=== PATIENT | female | born 1995 | race Caucasian/White ===

== ENCOUNTER → 2016-07-08 | Outpatient (CLI) | payer MEDICAID ==
[2016-07-08 13:05] VITALS: BP 103/67
== END ==
LOC: MHUC 10:34
PROVIDERS: ATTEND Physician Assistant
DX: B34.2 Coronavirus infection, unspecified (principal); B34.8 Other viral infections of unspecified site
CPT/HCPCS: 99213

== ENCOUNTER → 2016-07-08 | Outpatient (CLI) | payer MEDICAID | LOC: LAB 10:57 | PROVIDERS: ATTEND Physician Assistant | DX: R05 Cough (principal) | CPT/HCPCS: 87486; 87581; 87633; 87798 ==

== ENCOUNTER → 2016-08-01 | Outpatient (CLI) | payer MEDICAID ==
[2016-08-01 15:00] VITALS: BP 110/75
== END ==
LOC: MHUC 14:08
PROVIDERS: ATTEND Physician Assistant
DX: J01.10 Acute frontal sinusitis, unspecified (principal)
CPT/HCPCS: 99213

== ENCOUNTER 2016-08-27 11:10 | Emergency (ER) | payer MEDICAID ==
[~2016-08-27] VITALS: Ht 165.1 cm; Wt 53.2 kg
[2016-08-27 12:06] LABS: BILIRUBIN,URINE Negative (Negative); CLARITY,URINE Cloudy; GLUCOSE, URINE (UA) Negative (Negative); LEUKOCYTE ESTERASE ,URINE Trace (Negative); PH,URINE 6.5 (5.0 - 8.0); UROBILINOGEN,URINE 0.2 mg/dL (0.2-1.0)
[2016-08-27 12:11] LABS: COLOR,URINE Dark Yellow
[2016-08-27 12:22] LABS: URINE CENTRIFUGED VOLUME 12 mL
[2016-08-27 12:23] LABS: RBC,URINE None Seen /HPF
[2016-08-27 12:29] VITALS: BP 112/76
== END 2016-08-27 12:31 | disposition home or self-care (01) ==
LOC: ED 11:12
DX: O23.41 Unspecified infection of urinary tract in pregnancy, first trimester (principal); Z3A.01 Less than 8 weeks gestation of pregnancy
CPT/HCPCS: 36415; 81003; 81015; 84702; 87077; 87088; 87186; 87210; 87491; 99283

== ENCOUNTER 2016-09-23 14:21 | Emergency (ER) | payer MEDICAID ==
[~2016-09-23] VITALS: Ht 165.1 cm; Wt 53.2 kg
[~2016-09-23 14:21] MED LIST: AMOX500C5 PO; CEFD300C PO; CEPH-507 PO; CEPH500C PO; CODE-54 PO; MEDR150V; METH4TAB27 PO; NAPR250T34 PO; NAPR550T PO; NF-MEDROXA; No home medications; ONDAN4ODT PO; OXYC1TAB87 PO; PNV91TAB3 PO; PRED20TA PO; SULF-221 PO; TBR.3OP51 OS
[2016-09-23] MEDS ORDERED: PROG100I VG (14:39)
[2016-09-23 15:35] LABS: BILIRUBIN,URINE Negative (Negative); CLARITY,URINE Cloudy; COLOR,URINE Yellow; GLUCOSE, URINE (UA) Negative (Negative); LEUKOCYTE ESTERASE ,URINE 1+ (Negative); UROBILINOGEN,URINE 0.2 mg/dL (0.2-1.0)
[2016-09-23 15:36] LABS: URINE CENTRIFUGED VOLUME 12 mL
[2016-09-23 16:10] LABS: BILIRUBIN,URINE Negative (Negative); GLUCOSE, URINE (UA) Negative (Negative); LEUKOCYTE ESTERASE ,URINE Trace (Negative); UROBILINOGEN,URINE 0.2 mg/dL (0.2-1.0)
[2016-09-23 16:16] LABS: CLARITY,URINE Slightly Cloudy; COLOR,URINE Yellow
[2016-09-23 16:20] LABS: RBC,URINE None Seen /HPF; URINE CENTRIFUGED VOLUME 12 mL
[2016-09-23] MEDS ORDERED: CEPH-331 PO (16:30)
[2016-09-23 16:37] VITALS: BP 82/65
== END 2016-09-23 16:39 | disposition home or self-care (01) ==
LOC: EDUNIT# 14:21 → ED 14:23
DX: O23.11 Infections of bladder in pregnancy, first trimester (principal); Z3A.09 9 weeks gestation of pregnancy
CPT/HCPCS: 81003; 81015; 87077; 87088; 87186; 99282; 99283

== ENCOUNTER 2016-10-15 08:11 | Emergency (ER) | payer MEDICAID ==
[~2016-10-15] VITALS: Ht 165.1 cm; Wt 52.3 kg
[~2016-10-15 08:11] MED LIST changes: +CEPH-331 PO; +PROG100I VG
[2016-10-15 09:13] LABS: BASOPHILS % (AUTO) 1 % (0-2); EOSINOPHILS # (AUTO) 0.1 10^3uL; EOSINOPHILS % (AUTO) 1 % (0-4); LYMPHOCYTES # (AUTO) 1.4 X10^3; MEAN CORPUSCULAR HEMOGLOBIN 27.4 PG (26.0-34.0); MEAN CORPUSCULAR HGB CONC 33.1 g/dL (31.0-37.0); MEAN CORPUSCULAR VOLUME 83 FL (80-100); MEAN PLATELET VOLUME 10.7 FL (6.0-9.5); MONOCYTES # (AUTO) 0.6 X10^3; MONOCYTES % (AUTO) 9 % (3-11); NEUTROPHILS # (AUTO) 4.3 X10^3; NEUTROPHILS % (AUTO) 67 % (51-67); PLATELET COUNT 233 10^3uL (150-450); WHITE BLOOD COUNT 6.44 10^3uL (4.0-11.0)
[2016-10-15 09:19] LABS: BILIRUBIN,URINE Negative (Negative); COLOR,URINE Yellow; GLUCOSE, URINE (UA) Negative (Negative); LEUKOCYTE ESTERASE ,URINE Negative (Negative); PH,URINE 7.5 (5.0 - 8.0); UROBILINOGEN,URINE 0.2 mg/dL (0.2-1.0)
[2016-10-15 09:27] LABS: ALBUMIN 3.4 g/dL (3.4-5.0); ALKALINE PHOSPHATASE 57 U/L (38-126); ANION GAP 11.4 MEQ/L (3-15); BUN/CREATININE RATIO 11 (10-20); CALCULATED IONIZED CALCIUM 4.1 mg/dL (3.8-4.6); LIPASE* 41 U/L (23-300); TOTAL PROTEIN 6.5 g/dL (6.4-8.5)
[2016-10-15 09:31] LABS: AMPHETAMINE SCREEN, URINE Negative (Negative); CANNABINOID SCREEN, URINE Negative (Negative); CLARITY,URINE Slightly Cloudy; METHAMPHETAMINE SCREEN URINE S NEGATIVE (NEGATIVE); OPIATE SCREEN URINE Negative (Negative); PROPOXYPHENE STAT NEGATIVE (NEGATIVE)
[2016-10-15 11:41] VITALS: BP 100/51
--- NOTE | 2016-10-15 12:45 | Diagnostic Imaging Report ---
INDICATION: Right lower quadrant pain. COMPARISON: Pelvic ultrasound performed concurrently. TECHNIQUE: Grayscale and color Doppler imaging of the kidneys and urinary bladder was performed. FINDINGS: The kidneys are normal in size with the right measuring approximately 10 cm in length and the left measuring approximately 11 cm in length. No cortical thinning or focal mass lesion. No significant hydronephrosis. There is bilateral mild physiologic dilatation of the renal pelves, secondary to the gravid uterus. On prevoid imaging, the urinary bladder is well distended without wall thickening. Bilateral ureteral jets are present, indicative of ureteral patency. Post void imaging demonstrates near-complete emptying with a post void residual of 4 mL. IMPRESSION: Normal bilateral renal ultrasound in a female with minimal physiologic dilation of the proximal renal collecting system from the gravid uterus. Dictated by: Dictated on workstation # [id number]
--- NOTE | 2016-10-15 12:47 | Diagnostic Imaging Report ---
PROCEDURE: US OB SINGLE FETUS <14 WKS. TECHNIQUE: Multiple real-time grayscale images were obtained over the gravid uterus in various projections. INDICATION: 21-year-old female with right lower quadrant pain. COMPARISON: Renal ultrasound performed concurrently. FINDINGS: There is a single live intrauterine with a heart rate of 156 BPM. The amount of anatomic fluid appears visually appropriate. Based on the crown/rump length, the estimated gestational age is 12 weeks and 2 days. The right ovary measures 1.8 x 2.5 x 1.7 cm. There is a thickwalled anechoic cyst, compatible with a corpus luteum within the right ovary. This measures up to 1.2 cm. Blood flow is seen in the right ovary on color Doppler and spectral duplex imaging. The left ovary measures 2.0 x 2.2 x 1.2 cm. Blood flow is seen in the left ovary by color Doppler and spectral duplex imaging. No free pelvic fluid. IMPRESSION: 1. Single live intrauterine with a heart rate of 156 BPM. 2. Physiologic appearance of both ovaries with a small corpus luteal cyst in the right ovary measuring up to 1.2 cm. No ovarian torsion. Dictated by: Dictated on workstation # [id number]
== END 2016-10-15 11:41 | disposition home or self-care (01) ==
LOC: ED 08:13
DX: O34.82 Maternal care for other abnormalities of pelvic organs, second trimester (principal); Z3A.00 Weeks of gestation of pregnancy not specified
CPT/HCPCS: 36415; 76770; 76801; 80053; 80307; 81003; 83690; 85025; 86140; 99282; 99283